=== PATIENT | female | born 1990 | race African-American/Black ===

== ENCOUNTER 2019-03-20 10:32 | Emergency (ER) | payer MEDICAID ==
[~2019-03-20] VITALS: Ht 162.6 cm; Wt 54.0 kg
[2019-03-20 12:52] VITALS: BP 123/85
== END 2019-03-20 12:55 | disposition home or self-care (01) ==
LOC: ER 10:32
DX: T62.91XA Toxic effect of unspecified noxious substance eaten as food, accidental (unintentional), initial encounter (principal); Z88.0 Allergy status to penicillin; Y92.89 Other specified places as the place of occurrence of the external cause
CPT/HCPCS: 99282; 99283